=== PATIENT | female | born 1990 | race American Indian/Alaskan Native ===

== ENCOUNTER 2017-03-09 09:50 | Emergency (ER) | payer BC ==
[2017-03-09 09:57] VITALS: BP 137/97
[2017-03-09] MEDS ORDERED: PROVENTIL IH ONE (12:28)
[2017-03-09] MEDS ORDERED: DELTASONE PO ONE (12:28)
--- NOTE | 2017-03-09 12:40 | Emergency Department Report ---
Entered by MARCIN MURRIETA, acting as scribe for ADAL RAMAN PA. ED Chest Pain HPI - General Chief Complaint: Dyspnea/Respdistress Stated Complaint: CHEST PAIN/ DILIP Time Seen by Provider: 03/09/17 12:09 Source: patient Mode of arrival: Ambulatory Limitations: No Limitations - History of Present Illness Initial Comments: 26 y/o female with a PMHx of asthma and anemia presents to the ED c/o sharp intermittent mid-sternal chest pain and SOB began this morning at 02:00. Aggravated with deep breaths and alleviated with nothing. Notes she used a nebulizer treatment with no relief. Associated cough and headache, but she denies sore throat, nausea, vomiting, fever, chills, and dizziness. Notes Hx of similar symptoms, which she states her last episode was 2 weeks ago. Patient states she currently does not take medication for her asthma regularly. NKDA. RENE Complaint: chest pain -: This morning Time: 02:00 Onset: during rest Pain Location: other (mid-sternal) Pain Radiation: none Severity: moderate Severity scale (0 -10): 6 Quality: tightness, sharp Consistency: constant Improves With: nothing Worsens With: nothing Context: other (Hx of asthma and don't take medication for asthma) re: dyspnea. denies: nausea, vomting, diaphoresis, sense of impending doom Other Symptoms: cough. denies: fever, syncope, rash, acid taste in mouth, leg swelling, palpitations, burping Treatments Prior to Arrival: none Aspirin use within the Past 7 Days: (0) No - Related Data On Oral Contraceptives: No Allergies Allergy/AdvReac Type Severity Reaction Status Date / Time No Known Allergies Allergy Verified 03/09/17 09:59 ED Review of Systems Comment: All other systems reviewed and negative Constitutional: denies: chills, diaphoresis, fever, malaise, weakness Eyes: denies: eye pain, eye discharge, vision change ENT: denies: ear pain, throat pain Respiratory: cough, shortness of breath, SOB with exertion. denies: stridor, wheezing Cardiovascular: chest pain, dyspnea on exertion. denies: palpitations, orthopnea, edema, syncope, paroxysmal nocturnal dyspnea Endocrine: no symptoms reported Gastrointestinal: denies: abdominal pain, nausea, vomiting, diarrhea Musculoskeletal: denies: back pain, joint swelling, arthralgia, myalgia Skin: denies: rash, lesions Neurological: headache. denies: weakness, numbness, paresthesias Hematological/Lymphatic: denies: easy bleeding, easy bruising ED Past Medical Hx - Past Medical History Previous Medical History?: Yes Hx Asthma: Yes Additional medical history: anemia - Surgical History Past Surgical History?: No - Social History Smoking Status: Never Smoker Substance Use Type: None ED Physical Exam - General Limitations: No Limitations General appearance: alert, in no apparent distress - Head Head exam: Present: atraumatic, normocephalic - Eye Eye exam: Present: normal appearance, PERRL, EOMI Pupils: Present: normal accommodation - ENT ENT exam: Present: normal exam, mucous membranes moist, normal external ear exam - Neck Neck exam: Present: normal inspection, full ROM. Absent: tenderness, meningismus, lymphadenopathy - Respiratory Respiratory exam: Present: normal lung sounds bilaterally. Absent: respiratory distress, wheezes, rales, rhonchi, stridor, accessory muscle use, decreased breath sounds - Cardiovascular Cardiovascular Exam: Present: regular rate, normal rhythm, normal heart sounds. Absent: systolic murmur, diastolic murmur, rubs, gallop - GI/Abdominal GI/Abdominal exam: Present: soft, normal bowel sounds. Absent: distended - Extremities Exam Extremities exam: Present: normal inspection, full ROM - Back Exam Back exam: Present: normal inspection, full ROM - Neurological Exam Neurological exam: Present: alert, oriented X3, normal gait - Psychiatric Psychiatric exam: Present: normal affect, normal mood - Skin Skin exam: Present: warm, dry, intact. Absent: rash - Other Other exam information: Chest: No chest wall deformity. No reproducible chest wall tenderness noted. ED Course Vital Signs 03/09/17 09:55 Temperature 98 F Pulse Rate 75 Respiratory 16 Rate Blood Pressure 137/97 O2 Sat by Pulse 100 Oximetry ED Medical Decision Making - Medical Decision Making 26 year-old female presents with mid-sternal chest pain and SOB since this morning at 02:00 ED course: Patient received 1 dose of Proventil and 1 dose of Prednisone. Discussed the patient prednisone and inhaler medication as prescribed. Discussed with patient to take prescribed prednisone and inhaler medication as needed for similar symptoms in the future Discussed the patient to follow instructions as given and follow-up with primary care physician. Discuss her symptoms return or worsen to return to the ED Vital signs are normal patient is in no acute distress ED Disposition Condition: Stable Referrals: PRIMARY CARE,MD [Primary Care Provider] - 3-5 Days This documentation as recorded by the LIT shine JASMINE,accurately reflects the service I personally performed and the decisions made by me,ADAL RAMAN PA.
--- NOTE | 2017-03-09 17:03 | Emergency Department Report ---
Entered by MARCIN MURRIETA, acting as scribe for ADAL RAMAN PA. ED Asthma HPI - General Chief Complaint: Dyspnea/Respdistress Stated Complaint: CHEST PAIN/ DILIP Time Seen by Provider: 03/09/17 12:09 Source: patient Mode of arrival: Ambulatory Limitations: No Limitations - History of Present Illness Initial Comments: 26 y/o female with a PMHx of asthma and anemia presents to the ED c/o an asthma exacerbation that began this morning at 02:00. Aggravated with deep breaths and alleviated with nothing. Associated sharp intermittent mid-sternal chest pain, SOB, cough, and headache, but she denies sore throat, nausea, vomiting, fever, chills, and dizziness. Notes Hx of similar symptoms, which she states her last episode was 2 weeks ago. Patient states she currently does not take medication for her asthma. NKDA. RENE Complaint: shortness of breath, other (mid-sternal chest pain) -: This morning Time: 02:00 Asthma History: childhood onset Severity: moderate Context: medication non-compliance Associated Symptoms: dry cough, chest pain (sharp intermittent mid-sternal), other (SOB and headache). denies: fever, hemoptysis, leg edema, syncope - Related Data Current Asthma Therapy: none Previous Rx's Medication Instructions Recorded Last Taken Type ALBUTEROL Inhaler [ProAir HFA 2 puff IH QID PRN #1 pump 03/09/17 Unknown Rx Inhaler] predniSONE [Deltasone] 10 mg PO QDAY #5 tab 03/09/17 Unknown Rx Allergies Allergy/AdvReac Type Severity Reaction Status Date / Time No Known Allergies Allergy Verified 03/09/17 09:59 ED Review of Systems Comment: All other systems reviewed and negative Constitutional: denies: chills, diaphoresis, fever, malaise, weakness Eyes: denies: eye pain, eye discharge, vision change ENT: denies: ear pain, throat pain Respiratory: cough, shortness of breath, SOB with exertion. denies: orthopnea, SOB at rest, stridor, wheezing Cardiovascular: chest pain, dyspnea on exertion. denies: palpitations, orthopnea, edema, syncope, paroxysmal nocturnal dyspnea Endocrine: no symptoms reported Gastrointestinal: denies: abdominal pain, nausea, vomiting, diarrhea Musculoskeletal: denies: back pain, joint swelling, arthralgia Skin: denies: rash, lesions Neurological: headache. denies: weakness, numbness, paresthesias, confusion, abnormal gait, vertigo Hematological/Lymphatic: denies: easy bleeding, easy bruising ED Past Medical Hx - Past Medical History Previous Medical History?: Yes Hx Asthma: Yes Additional medical history: anemia - Surgical History Past Surgical History?: No - Social History Smoking Status: Never Smoker Substance Use Type: None - Medications Home Medications: Home Medications Medication Instructions Recorded Confirmed Last Taken Type ALBUTEROL Inhaler [ProAir HFA 2 puff IH QID PRN #1 pump 03/09/17 Unknown Rx Inhaler] predniSONE [Deltasone] 10 mg PO QDAY #5 tab 03/09/17 Unknown Rx ED Physical Exam - General Limitations: No Limitations General appearance: alert, in no apparent distress - Head Head exam: Present: atraumatic, normocephalic - Eye Eye exam: Present: normal appearance, PERRL, EOMI Pupils: Present: normal accommodation - ENT ENT exam: Present: normal exam, mucous membranes moist, normal external ear exam - Neck Neck exam: Present: normal inspection, full ROM. Absent: tenderness, meningismus, lymphadenopathy - Respiratory Respiratory exam: Present: normal lung sounds bilaterally. Absent: respiratory distress, wheezes, rales, rhonchi, stridor, chest wall tenderness, accessory muscle use, decreased breath sounds - Cardiovascular Cardiovascular Exam: Present: regular rate, normal rhythm, normal heart sounds. Absent: systolic murmur, diastolic murmur, rubs, gallop - GI/Abdominal GI/Abdominal exam: Present: soft, normal bowel sounds. Absent: distended - Extremities Exam Extremities exam: Present: normal inspection, full ROM - Back Exam Back exam: Present: normal inspection, full ROM - Neurological Exam Neurological exam: Present: alert, oriented X3, normal gait - Psychiatric Psychiatric exam: Present: normal affect, normal mood - Skin Skin exam: Present: warm, dry, intact. Absent: rash ED Course Vital Signs 03/09/17 03/09/17 09:55 12:53 Temperature 98 F Pulse Rate 75 Pulse Rate [ 68 Anterior Bilateral Throughout] Respiratory 16 Rate Respiratory 18 Rate [Anterior Bilateral Throughout] Blood Pressure 137/97 O2 Sat by Pulse 100 Oximetry ED Medical Decision Making - EKG Data EKG shows normal: sinus rhythm Rate: normal - EKG Data Interpretation: normal EKG - Medical Decision Making 26 year-old female presents with an asthma exacerbation ED course: Patient received 1 dose of albuterol and 1 dose of Prednisone. Discussed the patient prednisone and inhaler medication as prescribed. Discussed with patient to take prescribed prednisone and inhaler medication as needed for similar symptoms in the future Discussed the patient to follow instructions as given and follow-up with primary care physician. Discuss her symptoms return or worsen to return to the ED Vital signs are normal, Patient satting 100% room air patient is in no acute distress ED Disposition Clinical Impression: Asthma exacerbation Disposition: DC-01 TO HOME OR SELFCARE Is pt being admited?: No Does the pt Need Aspirin: No Condition: Stable Instructions: Asthma (ED) Prescriptions: ALBUTEROL Inhaler [ProAir HFA Inhaler] 2 puff IH QID PRN #1 pump PRN Reason: Shortness Of Breath predniSONE [Deltasone] 10 mg PO QDAY #5 tab Referrals: PRIMARY CARE, [Primary Care Provider] - 3-5 Days [facility] [Outside] - 3-5 Days [facility] [Outside] - 3-5 Days [facility] [Outside] - 3-5 Days Forms: Accompanied Note, Work/School Release Form(ED) Time of Disposition: 13:04 This documentation as recorded by the LIT shine JASMINE,accurately reflects the service I personally performed and the decisions made by DANISHA arriaga OYINLOLA A, PA.
== END 2017-03-09 13:54 | disposition home or self-care (01) ==
LOC: ED 09:50
DX: J45.901 Unspecified asthma with (acute) exacerbation (principal); D64.9 Anemia, unspecified
CPT/HCPCS: 93005; 93010; 94640; 99283; J7512

== ENCOUNTER 2019-11-08 01:45 | Emergency (ER) | payer SELFPAY ==
[2019-11-08 02:48] LABS: Basophils % (Auto) 0.5 % (0.0-1.8); Eosinophils # (Auto) 0.5 K/mm3 (0.0-0.4); Eosinophils % (Auto) 5.9 % (0.0-4.3); Hematocrit 33.7 % (30.3-42.9); Lymphocytes % (Auto) 35.5 % (13.4-35.0); Mean Corpuscular HGB Conc 33 % (30-34); Mean Corpuscular Volume 79 fl (79-97); Monocytes # (Auto) 0.7 K/mm3 (0.0-0.8); Monocytes % (Auto) 8.3 % (0.0-7.3); Platelet Count 248 K/mm3 (140-440); Red Blood Count 4.29 M/mm3 (3.65-5.03); Red Cell Distribution Width 16.5 % (13.2-15.2)
--- NOTE | 2019-11-08 03:34 | Emergency Department Report ---
ED Abdominal Pain HPI - General Chief Complaint: Vaginal Bleeding Stated Complaint: PELVIC BACK PAIN SPOTTING OFF AND ON PREG 11 WEEKS Time Seen by Provider: 11/08/19 03:33 Source: patient, EMS Mode of arrival: Ambulatory Limitations: No Limitations - History of Present Illness Initial Comments: Patient here report that she is having abdominal cramping and she had vaginal bleeding yesterday but it stopped. She says she has been having cramping on and off for 2 weeks and she tried to get in with her doctor but she could not get an appointment. Patient says she has an [facility] Dr. Aranda. She is also complaining of back pain. Pain is 4 out of 10 on and off. Pain is crampy and achy. Pain is intermittent. Denies taking any medication for pain and she is at 11 weeks per patient. Denies any fever or chills. Denies any urinary burning but reports frequency. Denies any urgency. Denies any vaginal discharge or any concern for STDs. Patient reports that she is on care and vitamin. - Related Data Previous Rx's Medication Instructions Recorded Last Taken Type Albuterol INH(or & Nicu Only) 2 puff IH QID PRN #1 pump 03/09/17 Unknown Rx [ProAir HFA Inhaler] predniSONE [Deltasone] 10 mg PO QDAY #5 tab 03/09/17 Unknown Rx Nitrofurantoin Atlantic/M-Cryst 100 mg PO Q12HR 7 Days #14 capsule 11/08/19 Unknown Rx [Macrobid CAP] Allergies Allergy/AdvReac Type Severity Reaction Status Date / Time No Known Allergies Allergy Verified 11/08/19 01:52 ED Review of Systems ROS: Stated complaint: PELVIC BACK PAIN SPOTTING OFF AND ON PREG 11 WEEKS Other details as noted in HPI ED Past Medical Hx - Past Medical History Hx Asthma: Yes Additional medical history: anemia - Social History Smoking Status: Never Smoker Substance Use Type: None - Medications Home Medications: Home Medications Medication Instructions Recorded Confirmed Last Taken Type Albuterol INH(or & Nicu Only) 2 puff IH QID PRN #1 pump 03/09/17 Unknown Rx [ProAir HFA Inhaler] predniSONE [Deltasone] 10 mg PO QDAY #5 tab 03/09/17 Unknown Rx Nitrofurantoin Atlantic/M-Cryst 100 mg PO Q12HR 7 Days #14 capsule 11/08/19 Unknown Rx [Macrobid CAP] ED Physical Exam - General Limitations: No Limitations General appearance: alert, in no apparent distress - Head Head exam: Present: atraumatic, normocephalic - Eye Eye exam: Present: normal appearance - ENT ENT exam: Present: normal exam, normal orophraynx, mucous membranes moist - Neck Neck exam: Present: normal inspection, full ROM. Absent: tenderness - Respiratory Respiratory exam: Present: normal lung sounds bilaterally. Absent: respiratory distress, chest wall tenderness - Cardiovascular Cardiovascular Exam: Present: regular rate, normal rhythm, normal heart sounds - GI/Abdominal GI/Abdominal exam: Present: soft, normal bowel sounds. Absent: distended, tenderness, guarding, rebound, rigid, organomegaly, mass, bruit, pulsatile mass, hernia - External exam: Present: normal external exam. Absent: bleeding Speculum exam: Present: normal speculum exam. Absent: erythema, vaginal discharge, cervical discharge, vaginal bleeding, tissue, laceration - Expanded Exam Expanded Female exam: Absent: vulvar erythema, vulvar tenderness External exam: Present: normal Amniotic fluid: Present: none Speculum exam: Present: cervical OS closed. Absent: vaginal bleeding, vaginal discharge - Extremities Exam Extremities exam: Present: normal inspection, full ROM, normal capillary refill. Absent: tenderness, pedal edema, calf tenderness - Back Exam Back exam: Present: normal inspection, full ROM, other (Ambulates without any difficulties). Absent: tenderness, CVA tenderness (R), CVA tenderness (L) - Neurological Exam Neurological exam: Present: alert, oriented X3, normal gait - Psychiatric Psychiatric exam: Present: normal affect, normal mood - Skin Skin exam: Present: warm, dry, intact, normal color. Absent: rash ED Course Vital Signs 11/08/19 01:54 Temperature 98.4 F Pulse Rate 78 Respiratory 18 Rate Blood Pressure 124/80 O2 Sat by Pulse 99 Oximetry - Reevaluation(s) Reevaluation #1: 11/08/19 04:59 Patient stable throughout ED course. No acute distress. She has no episode of vaginal bleeding in the emergency room ED Medical Decision Making - Lab Data Result diagrams: 11/08/19 02:18 Lab Results 11/08/19 11/08/19 11/08/19 Range/Units 02:18 02:18 02:18 WBC 8.4 (4.5-11.0) K/mm3 RBC 4.29 (3.65-5.03) M/mm3 Hgb 11.0 (10.1-14.3) gm/dl Hct 33.7 (30.3-42.9) % MCV 79 (79-97) fl MCH 26 L (28-32) pg MCHC 33 (30-34) % RDW 16.5 H (13.2-15.2) % Plt Count 248 (140-440) K/mm3 Lymph % (Auto) 35.5 H (13.4-35.0) % Atlantic % (Auto) 8.3 H (0.0-7.3) % Eos % (Auto) 5.9 H (0.0-4.3) % Baso % (Auto) 0.5 (0.0-1.8) % Lymph # 3.0 (1.2-5.4) K/mm3 Atlantic # 0.7 (0.0-0.8) K/mm3 Eos # 0.5 H (0.0-0.4) K/mm3 Baso # 0.0 (0.0-0.1) K/mm3 Seg Neutrophils % 49.8 (40.0-70.0) % Seg Neutrophils # 4.2 (1.8-7.7) K/mm3 HCG, Quant [id number] H (0-4) mIU/mL Urine Color (Yellow) Urine Turbidity (Clear) Urine pH (5.0-7.0) Ur Specific [place] (1.003-1.030) Urine Protein (Negative) mg/dL Urine Glucose (UA) (Negative) mg/dL Urine Ketones (Negative) mg/dL Urine Blood (Negative) Urine Nitrite (Negative) Urine Bilirubin (Negative) Urine Urobilinogen (<2.0) mg/dL Ur Leukocyte Esterase (Negative) Urine WBC (Auto) (0.0-6.0) /HPF Urine RBC (Auto) (0.0-6.0) /HPF U Epithel Cells (Auto) (0-13.0) /HPF Urine Bacteria (Auto) (Negative) /HPF Urine Mucus /HPF Blood Type O POSITIVE 11/08/19 Range/Units 03:23 WBC (4.5-11.0) K/mm3 RBC (3.65-5.03) M/mm3 Hgb (10.1-14.3) gm/dl Hct (30.3-42.9) % MCV (79-97) fl MCH (28-32) pg MCHC (30-34) % RDW (13.2-15.2) % Plt Count (140-440) K/mm3 Lymph % (Auto) (13.4-35.0) % Atlantic % (Auto) (0.0-7.3) % Eos % (Auto) (0.0-4.3) % Baso % (Auto) (0.0-1.8) % Lymph # (1.2-5.4) K/mm3 [place] # (0.0-0.8) K/mm3 Eos # (0.0-0.4) K/mm3 Baso # (0.0-0.1) K/mm3 Seg Neutrophils % (40.0-70.0) % Seg Neutrophils # (1.8-7.7) K/mm3 HCG, Quant (0-4) mIU/mL Urine Color Yellow (Yellow) Urine Turbidity Slightly-cloudy (Clear) Urine pH 5.0 (5.0-7.0) Ur Specific [place] 1.028 (1.003-1.030) Urine Protein <15 mg/dl (Negative) mg/dL Urine Glucose (UA) Neg (Negative) mg/dL Urine Ketones Neg (Negative) mg/dL Urine Blood Neg (Negative) Urine Nitrite Neg (Negative) Urine Bilirubin Neg (Negative) Urine Urobilinogen < 2.0 (<2.0) mg/dL Ur Leukocyte Esterase Sm (Negative) Urine WBC (Auto) 3.0 (0.0-6.0) /HPF Urine RBC (Auto) 3.0 (0.0-6.0) /HPF U Epithel Cells (Auto) 7.0 (0-13.0) /HPF Urine Bacteria (Auto) 3+ (Negative) /HPF Urine Mucus 2+ /HPF Blood Type Urine culture pending - Radiology Data Radiology results: report reviewed OB ultrasound dictated by radiologist and report reviewed by myself. Please see details below Print Report Referring Physician:PAUL NARVAEZatient Name:AVE BEAUCHAMPPatient ID:[id number] of :[id number]:FemaleAccession:[id number] Date:[id number] Status:Finalized Findings [facility] [address] [id number] Ultrasound Report Signed Patient: AVE BEAUCHAMP MR#: [id number] : 1990 Acct:[id number] Age/Sex: 29 / F ADM Date: 11/08/19 Loc: ED Attending Dr: Ordering Physician: PAUL GRIMALDO MD Date of Service: 11/08/19 Procedure(s): US OB <= 14 weeks fetus Accession Number(s): [id number] cc: PAUL GRIMALDO MD TRANSABDOMINAL OB PELVIC ULTRASOUND INDICATION / CLINICAL INFORMATION: Pelvic pain and vaginal spotting. COMPARISON: None available. FINDINGS: There is a single intrauterine with an estimated gestational age of 11 weeks by crown- rump length. The SUKUMAR is 05/29/20. Clinical dates are 11 weeks 1 day. The heart rate is 167 bpm. A yolk sac is present. There is no evidence of implantation hemorrhage. The uterine cervix measures 3.5 cm in length and the internal os is closed. The right ovary measures 3.1 x 2.5 x 1.9 cm and the left ovary 2.6 x 1.7 x 1.3 cm. There is normal blood flow to both ovaries on Doppler exam. There is no evidence of adnexal mass or free fl uid. IMPRESSION: Single viable 11 week intrauterine without complication. Signer Name: Brian Landin MD Signed: 11/08/2019 4:32 AM Workstation Name: [id number] Transcribed By: RT Dictated By: Brian Landin MD Electronically Authenticated By: Brian Landin MD Signed Date/Time: 11/08/19431 DD/ 5 TD/TT: - Medical Decision Making This is a 29-year-old female here report that she had an episode of vaginal bleeding yesterday that was light but no bleeding today. She says she has been having abdominal pain on and off over the last [address] Dr[address] Saeed Horta [facility] but office is closed due to coronavirus. She reports abdominal cramping and back pain. Physical findings were normal. CBC stable except for some minor abnormalities, quantitative hCG correlates with ultrasound which shows patient with normal and heart beat is at 165 bpm. Urinalysis positive for urinary tract infection and negative for blood. No need for STD testing because patient does not have any vaginal discharge and she said that last STD testing was normal. I discussed with patient and her results along with diagnosis and told her to follow-up with [facility] and to continue taking vitamin. Patient discharged home with prescription for Macrobid for urinary tract infection. Vital signs stable she is afebrile and in no acute distress. - Differential Diagnosis Ectopic , threatened miscarriage, UTI Critical care attestation.: If time is entered above; I have spent that time in minutes in the direct care of this critically ill patient, excluding procedure time. ED Disposition Clinical Impression: Threatened miscarriage in early Acute cystitis Qualifiers: Hematuria presence: without hematuria Qualified Code(s): N30.00 - Acute cystitis without hematuria Abdominal pain during Qualifiers: Trimester: first trimester Qualified Code(s): O26.891 - Other specified related conditions, first trimester Disposition: DC-01 TO HOME OR SELFCARE Is pt being admited?: No Does the pt Need Aspirin: No Condition: Stable Instructions: Threatened Miscarriage (ED), Urinary Tract Infection in Women (ED), Abdominal Pain in (ED) Additional Instructions: Please follow-up with your primary care and [facility] doctor as directed. If your symptoms worsen and your vaginal bleeding recur please return to the emergency room JENNIFER Continue with your care Keep hydrated Take antibiotic for urinary tract infection Please rest and you said you are having vaginal bleeding so avoid having sexual activity or placing any objects of any kind in vaginal area. You will need to be directed by your [facility] IN[facility]ATOR in regards to sexual activity and generalized activity. Please call your [facility] office this morning and you can leave a message with answering service to have [facility] call you back and let them know that you are in the emergency room today and was treated. Prescriptions: Nitrofurantoin Atlantic/M-Cryst [Macrobid CAP] 100 mg PO Q12HR 7 Days #14 capsule Referrals: BRIANA ARANDA MD [Primary Care Provider] - 11/09/19 Forms: Work/School Release Form(ED)
[2019-11-08 03:44] LABS: Bacteria,Urine 3+ /HPF (Negative); Bilirubin,Urine NEG (Negative); Blood,Urine NEG (Negative); Color,Urine Yellow (Yellow); Mucus,Urine 2+ /HPF; Protein,Urine <15 mg/dL mg/dL (Negative); Urobilinogen,Urine < 2.0 mg/dL (<2.0)
--- NOTE | 2019-11-08 04:36 | Ultrasound Report ---
TRANSABDOMINAL OB PELVIC ULTRASOUND INDICATION / CLINICAL INFORMATION: Pelvic pain and vaginal spotting. COMPARISON: None available. FINDINGS: There is a single intrauterine with an estimated gestational age of 11 weeks by crown-rump length. The SUKUMAR is 05/29/20. Clinical dates are 11 weeks 1 day. The heart rate is 167 bpm. A yo lk sac is present. There is no evidence of implantation hemorrhage. The uterine cervix measures 3.5 cm in length and the internal os is closed. The right ovary measures 3.1 x 2.5 x 1.9 cm and the left ovary 2.6 x 1.7 x 1.3 cm. There is normal blood flow to both ovaries on Doppler exam. There is no evidence of adnexal mass or free fluid. IMPRESSION: Single viable 11 week intrauterine without complication. Signer Name: Brian Landin MD Signed: 11/08/2019 4:32 AM Workstation Name: [id number]
[2019-11-08 05:07] VITALS: BP 124/80
== END 2019-11-08 05:50 | disposition home or self-care (01) ==
LOC: ED 01:45
DX: O20.0 Threatened abortion (principal); O26.891 Other specified pregnancy related conditions, first trimester; O99.011 Anemia complicating pregnancy, first trimester; O99.511 Diseases of the respiratory system complicating pregnancy, first trimester; N30.00 Acute cystitis without hematuria; R10.9 Unspecified abdominal pain; J45.909 Unspecified asthma, uncomplicated; Z3A.11 11 weeks gestation of pregnancy; Z79.899 Other long term (current) drug therapy
CPT/HCPCS: 36415; 76801; 81001; 84702; 85025; 86850; 86900; 86901; 99284

== ENCOUNTER 2021-11-13 18:21 | Outpatient (CLI) | payer MEDICAID, OTHER ==
[2021-11-13 18:45] VITALS: BP 127/78
--- NOTE | 2021-11-13 20:02 | Ultrasound Report ---
Ultrasound obstetrical limited INDICATION: well being. Evaluate placenta. FINDINGS: Single intrauterine gestation in the breech position. PABLO measures 10.1 cm. The placenta is anterior and fundal in location, grade 1. The heart rate is 1 49 bpm IMPRESSION: No acute findings visualized. Signer Name: Guillermo Bowen MD Signed: 11/13/2021 7:58 PM Workstation Name: [id number]
== END 2021-11-13 20:41 | disposition home or self-care (01) ==
LOC: TRG 18:21 → APU 18:24 → TRG 20:41
PROVIDERS: ATTEND Obstetrics & Gynecology
DX: Z34.92 Encounter for supervision of normal pregnancy, unspecified, second trimester (principal); Z3A.24 24 weeks gestation of pregnancy
CPT/HCPCS: 76815

== ENCOUNTER 2021-12-04 12:24 | Emergency (ER) | payer SELFPAY ==
[2021-12-04 13:38] VITALS: BP 139/89
--- NOTE | 2021-12-04 13:39 | Emergency Department Report ---
ED Eye Problem HPI - General Stated complaint: LEFT EYE BLOOD SHOT/X 1 DAY Time Seen by Provider: 12/04/21 13:36 Source: patient Mode of arrival: Ambulatory Limitations: No Limitations - History of Present Illness Initial comments: Patient is a 31-year-old female that comes to the emergency with an area of left eye redness. She denies trauma. She does wear contact lenses but has had none in her eye for couple days. Patient denies cutting grass or doing anything else that would predispose her to getting something in her eye. Her vision is unchanged. She denies coughing or sneezing really hard and then noticing the red spot. She did wake up with it this morning. There is no tearing. No recent URI. Vital signs are normal. Patient is , she does have hypert ension and is taking labetalol. She is compliant with her medications and her blood pressure is within normal limits. She denies headache. She denies chest pain or shortness of breath. MD chief complaint: eye redness -: Sudden Location: left eye Place: home If Injury: none Eye Symptoms: redness Consistency: constant Associated Symptoms: none Treatments Prior to Arrival: none - Related Data Patient Tetanus UTD: Yes Previous Rx's Medication Instructions Recorded Last Taken Type Albuterol Mdi (or & Nicu Only) 2 puff IH QID PRN #1 pump 03/09/17 Unknown Rx [ProAir HFA Inhaler] predniSONE 10 mg PO QDAY #5 tab 03/09/17 Unknown Rx Nitrofurantoin [place]/M-Cryst 100 mg PO Q12HR 7 Days #14 capsule 11/08/19 Unknown Rx [Macrobid CAP] Allergies Allergy/AdvReac Type Severity Reaction Status Date / Time latex Allergy Intermediate Rash Verified 12/04/21 13:37 prednisone Allergy Rash Verified 12/04/21 13:37 ED Review of Systems ROS: Stated complaint: LEFT EYE BLOOD SHOT/X 1 DAY Other details as noted in HPI Comment: All other systems reviewed and negative ED Past Medical Hx - Past Medical History Previous Medical History?: Yes Hx Hypertension: Yes (x2 weeks) Hx Diabetes: No Hx Deep Vein Thrombosis: No Hx Renal Disease: No Hx Sickle Cell Disease: No Hx Seizures: No Hx Asthma: Yes Hx HIV: No Additional medical history: anemia - Surgical History Past Surgical History?: No - Family History Family history: no significant - Social History Smoking Status: Never Smoker - Medications Home Medications: Home Medications Medication Instructions Recorded Confirmed Last Taken Type Albuterol Mdi (or & Nicu Only) 2 puff IH QID PRN #1 pump 03/09/17 Unknown Rx [ProAir HFA Inhaler] predniSONE 10 mg PO QDAY #5 tab 03/09/17 Unknown Rx Nitrofurantoin [place]/M-Cryst 100 mg PO Q12HR 7 Days #14 capsule 11/08/19 Unknown Rx [Macrobid CAP] ED Physical Exam - General Limitations: No Limitations General appearance: alert, in no apparent distress - Head Head exam: Present: atraumatic, normocephalic - Eye Eye exam: Present: normal appearance, PERRL, EOMI, other (SUBCONJ HEMOR. LEFT EYE) - Expanded Eye Exam Expanded Eyelids: Normal Inspection: Right Sclera/Conjunctival: Hemorrhage: Right - ENT ENT exam: Present: mucous membranes moist - Neck Neck exam: Present: normal inspection - Respiratory Respiratory exam: Present: normal lung sounds bilaterally. Absent: respiratory distress - Cardiovascular Cardiovascular Exam: Present: regular rate, normal rhythm. Absent: systolic murmur, diastolic murmur, rubs, gallop - GI/Abdominal GI/Abdominal exam: Present: soft, normal bowel sounds - Extremities Exam Extremities exam: Present: normal inspection - Back Exam Back exam: Present: normal inspection - Neurological Exam Neurological exam: Present: alert, oriented X3 - Psychiatric Psychiatric exam: Present: normal affect, normal mood - Skin Skin exam: Present: warm, dry, intact, normal color. Absent: rash ED Course Vital Signs 12/04/21 13:31 Temperature 98.3 F Pulse Rate 85 Respiratory 14 Rate Blood Pressure 139/89 O2 Sat by Pulse 99 Oximetry ED Medical Decision Making - Medical Decision Making Eye exam is within normal limits with the exception of a subconjunctival hemorrhage of the left eye. Patient educated on care and management of the hemorrhage. Eye exam otherwise is normal Visual acuity is unchanged, 20/20 both eyes per RN Blood pressure well controlled. Patient being discharged home with discharge plan of care including diet, activity, medications and follow-up. She verbalizes understanding of plan of care. Patient is given referral to ophthalmology should be needed. Vital Signs 12/04/21 13:31 Temperature 98.3 F Pulse Rate 85 Respiratory 14 Rate Blood Pressure 139/89 O2 Sat by Pulse 99 Oximetry - Differential Diagnosis Some conjunctival hemorrhage Critical care attestation.: If time is entered above; I have spent that time in minutes in the direct care of this critically ill patient, excluding procedure time. ED Disposition Clinical Impression: Subconjunctival hemorrhage Qualifiers: Laterality: unspecified laterality Qualified Code(s): H11.30 - Conjunctival hemorrhage, unspecified eye Disposition: 01 HOME / SELF CARE / HOMELESS Is pt being admited?: No Does the pt Need Aspirin: No Condition: Stable Instructions: Subconjunctival Hemorrhage Additional Instructions: Warm compresses to eye. Try not to rub the eye. No contacts in the eye until this goes away. Tylenol for pain. If this persist or get worse follow-up with ophthalmology. Have given you referral below. Continue to monitor your blood pressure Avoid straining and coughing Referrals: CESAR MURILLO MD [Staff Physician] - 3-5 Days Time of Disposition: 13:37
== END 2021-12-04 19:07 | disposition home or self-care (01) ==
LOC: ED 12:24
DX: H11.32 Conjunctival hemorrhage, left eye (principal); I10 Essential (primary) hypertension; J45.909 Unspecified asthma, uncomplicated; Z88.8 Allergy status to other drugs, medicaments and biological substances; Z91.040 Latex allergy status; Z79.899 Other long term (current) drug therapy
CPT/HCPCS: 99282